=== PATIENT | female | born 1930 | race Caucasian/White ===

== ENCOUNTER 2019-07-08 08:16 | Emergency (ER) | payer MEDICARE, OTHER ==
--- NOTE | 2019-07-08 09:04 | RAD ---
Left hand 3 views HISTORY: Left hand pain. FINDINGS: Prominent joint space narrowing, osteophytosis, and subchondral sclerosis throughout the in terphalangeal joints and the radial carpal and carpometacarpal joints. Significant lateral subluxation at the first carpometacarpal joint. Partial collapse of the trapezium. Articular surface erosions of the distal interphalangeal joints, most pronounced at the index finger. Adjacent osteophytes, fragmented, at multiple fingers. Osseous structures are diffusely demineralized. No acut e fracture or dislocation. 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 Osteoporosis.
== END 2019-07-08 09:06 | disposition home or self-care (01) ==
LOC: SCSER 08:16
DX: M19.042 Primary osteoarthritis, left hand (principal)